=== PATIENT | female | born 1935 | race Caucasian/White ===

== ENCOUNTER 2017-06-14 09:41 | Inpatient (IN) | payer MEDICARE ==
[~2017-06-14] VITALS: Ht 160 cm; Wt 85.3 kg
[2017-06-14] VITALS (8 sets, daily range): BP systolic 135–190; BP diastolic 59–97; PULSE 63–82; RESP 16–20; TEMP 97.4–100.6; O2SAT 94–97
[~2017-06-14 09:41] MED LIST: CEPH500C3 PO; CIPR500T2 PO; FLOR250C PO; GABA300 PO; LORT7.5T3 PO; METR-1 PO; PROM25SU8 PO; TRAM50 PO
[2017-06-14] MEDS ORDERED: VANCOMYCIN INJ 1,200 MG in SODIUM CHLOR 0.9% 250 ML INJ 250 ML IV STA (09:59)
[2017-06-14] MEDS ORDERED: PIPERACIL-TAZO 4.5 GM PREMIX 100 ML IV STA (09:59)
--- NOTE | 2017-06-14 10:20 | PD ---
HPI Chief Complaint: Altered Mental Status Time Seen by Provider: 09:59 Travel History International Travel<30 days: No Contact w/Intl Traveler<30days: No Traveled to known affect area: No History of Present Illness HPI This 82-year-old female is brought by her because of altered mental status. He says that she has been quite confused and agitated since yesterday. She is confused been confined to wheelchair since 2009. She has a long history of back trouble and also had neck surgery which has caused some neurologic problems. 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 She has an indwelling Wang. She had a colostomy done in 2010 because she was not moving her bowels. She had an episode of altered mental status about a month ago and was admitted to [facility]. Her was told that she had infection of the bladder and a wound infection. Her decided describes a mass on the right hip which drained in 2010 and apparently she had a wound there since which drains at times. She is cared for at home by her . Her says she has not been eating. She is also complaining of some pain in her right foot. Her thinks he got caught in a door couple of weeks ago. We did call for old records to [facility]. She was admitted there in April with a similar presentation. 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) Menopausal: Yes Past Surgical History Tonsillectomy: Yes Other Surgery: Yes (BILAT CARPAL TUNNEL SURGERY, HEMMORRHOID SURGERY) Social History Alcohol Use: No Tobacco Use: No Substance Use: No Allergies-Medications (Allergen,Severity, Reaction): Coded Allergies: iodine (Unverified Allergy, Severe, HIVES, 06/14/17) potassium iodide (Unverified Allergy, Severe, HIVES, 06/14/17) povidone-iodine (Unverified Allergy, Severe, HIVES, 06/14/17) sodium iodide (Unverified Allergy, Severe, HIVES, 06/14/17) sodium iodide (Unverified Allergy, Severe, HIVES, 06/14/17) Sulfa (Sulfonamide Antibiotics) (Verified Allergy, Unknown, 06/14/17) Reported Meds & Prescriptions Reported Meds & Active Scripts Active Reported Dorzolamide-Timolol Opth Drops 22.3-6.8 Mg/Ml Soln 1 Drop EACH EYE BID Oxycodone-Acetaminophen 10-325 mg Tab 1 Tab PO Q6H PRN Gabapentin 600 Mg Tab 1,200 Mg PO TID Latanoprost Opth Drops (Latanoprost) 0.005% Drops 1 Drop EACH EYE HS Refrigerate until opened. Alphagan P Opth Drops (Brimonidine Tartrate) 0.1% Soln 0.2 % EACH EYE Q8HR Levofloxacin 500 Mg Tablet 500 Mg PO DAILY Review of Systems General / Constitutional: Positive: Fever Eyes: No: Blurred Vision HENT: No: Headaches Cardiovascular: No: Chest Pain or Discomfort Respiratory: No: Cough, Shortness of Breath Gastrointestinal: No: Vomiting, Diarrhea Genitourinary: Positive: Other (Wang catheter) Musculoskeletal: No: Arthralgias Skin: Positive Other (draining wound right hip, healing decubitus over her sacrum), No Rash Neurologic: Positive: Change in Mentation Psychiatric: No: Substance Abuse Endocrine: No: Heat Intolerance Physical Exam Narrative GENERAL: Well-developed female. She is quite agitated does not follow commands. She does not answer questions appropriately. SKIN: Focused skin assessment warm/dry. HEAD: Atraumatic. Normocephalic. EYES: Pupils equal and round. No scleral icterus. No injection or drainage. ENT: No nasal bleeding or discharge. Mucous membranes dry NECK: Trachea midline. No JVD. CARDIOVASCULAR: Regular rate and rhythm. No murmur appreciated. RESPIRATORY: No accessory muscle use. Clear to auscultation. Breath sounds equal bilaterally. GASTROINTESTINAL: Abdomen soft, non-tender, nondistended. Hepatic and splenic margins not palpable. She has a colostomy. She has a Wang catheter There is an old wound and the area of the right hip appears quite deep and has some yellowish drainage at the base of the wound. MUSCULOSKELETAL: No obvious deformities. No clubbing. No cyanosis. No edema. There is some swelling and tenderness of the left foot which is somewhat diffuse. NEUROLOGICAL: Awake and alert. Agitated. Not answering questions appropriately. she has weakness of both legs PSYCHIATRIC: Not testable, agitated and uncooperative Data Data Last Documented VS Vital Signs Date Time Temp Pulse Resp B/P (MAP) Pulse Ox O2 Delivery O2 Flow Rate FiO2 06/14/17 11:54 82 18 190/97 (128) 97 Room Air 06/14/17 10:22 100.6 Orders Orders Sepsis Workup Initiated (06/14/17 ) Complete Blood Count With Diff (06/14/17 09:59) Comprehensive Metabolic Panel (06/14/17 09:59) Lactic Acid Sepsis Protocol (06/14/17 09:59) Urinalysis - C+S If Indicated (06/14/17 09:59) Blood Culture (06/14/17 09:59) Wound Culture And Gram Stain (06/14/17 09:59) Chest, Single Ap (06/14/17 09:59) Blood Glucose (06/14/17 09:59) Ecg Monitoring (06/14/17 09:59) Iv Access Insert/Monitor (06/14/17 09:59) Oximetry (06/14/17 09:59) Oxygen Administration (06/14/17 09:59) Ct Brain W/O Iv Contrast(Rout) (06/14/17 09:59) Piperacil-Tazo 4.5 Gm Premix (Zosyn 4.5 (06/14/17 09:59) Vancomycin Inj (Vancomycin Inj) (06/14/17 09:59) Ct Abd/Pel W/O Iv Contrast (06/14/17 ) Foot, Limited (2vws) (06/14/17 10:24) Lorazepam Inj (Ativan Inj) (06/14/17 10:45) Sodium Chlor 0.9% 1000 Ml Inj (Ns 1000 M (06/14/17 11:15) Lorazepam Inj (Ativan Inj) (06/14/17 12:00) Urine Culture (06/14/17 11:30) Labs Laboratory Tests Test 06/14/17 10:15 06/14/17 11:30 White Blood Count 8.3 TH/MM3 Red Blood Count 3.71 MIL/MM3 Hemoglobin 10.2 GM/DL Hematocrit 31.9 % Mean Corpuscular Volume 85.9 FL Mean Corpuscular Hemoglobin 27.5 PG Mean Corpuscular Hemoglobin Concent 32.0 % Red Cell Distribution Width 15.9 % Platelet Count 198 TH/MM3 Mean Platelet Volume 7.8 FL Neutrophils (%) (Auto) 78.8 % Lymphocytes (%) (Auto) 13.3 % Monocytes (%) (Auto) 5.3 % Eosinophils (%) (Auto) 1.9 % Basophils (%) (Auto) 0.7 % Neutrophils # (Auto) 6.5 TH/MM3 Lymphocytes # (Auto) 1.1 TH/MM3 Monocytes # (Auto) 0.4 TH/MM3 Eosinophils # (Auto) 0.2 TH/MM3 Basophils # (Auto) 0.1 TH/MM3 CBC Comment DIFF FINAL Differential Comment Blood Urea Nitrogen 13 MG/DL Creatinine 1.20 MG/DL Random Glucose 84 MG/DL Total Protein 8.0 GM/DL Albumin 3.3 GM/DL Calcium Level 8.8 MG/DL Alkaline Phosphatase 90 U/L Aspartate Amino Transf (AST/SGOT) 14 U/L Alanine Aminotransferase (ALT/SGPT) 12 U/L Total Bilirubin 0.7 MG/DL Sodium Level 127 MEQ/L Potassium Level 4.7 MEQ/L Chloride Level 93 MEQ/L Carbon Dioxide Level 25.4 MEQ/L Anion Gap 9 MEQ/L Estimat Glomerular Filtration Rate 43 ML/MIN Lactic Acid Level 1.2 mmol/L Urine Collection Type CATH Urine Color YELLOW Urine Turbidity SLIGHT Urine pH 5.5 Urine Specific [place] 1.021 Urine Protein 100 mg/dL Urine Glucose (UA) NEG mg/dL Urine Ketones NEG mg/dL Urine Occult Blood MOD Urine Nitrite POS Urine Bilirubin NEG Urine Leukocyte Esterase MOD Urine RBC 10-14 /hpf Urine WBC 20-24 /hpf Urine WBC Clumps MOD Urine Bacteria MANY /hpf Microscopic Urinalysis Comment CATH-CULTURE IND Urine Collection Time 11:30 MDM Medical Decision Making Medical Screen Exam Complete: Yes Emergency Medical Condition: Yes Medical Record Reviewed: Yes Differential Diagnosis Differential includes sepsis, intracerebral hemorrhage, UTI, infected wound, delirium, acute encephalopathy Narrative Course Chest x-ray shows borderline heart size and clear lung taylor. X-ray of the left foot shows severe demineralization and degenerative changes but no fracture. CT of the abdomen and pelvis shows findings of pressure sores overlying both issue yet as well as the coccygeal region. There is an area of tissue breakdown with Dr. Olivia in the vicinity of the right initiate. No abscess is seen. CT scan of the head was limited by motion but essentially negative. Hemoglobin is 10.2 with a white count of 8.3. The urine is 13 with creatinine of 1.2. Sodium is 127. Urinalysis shows 20-24 white cells. Patient does have a urinary tract infection. She has been a management problem in the emergency department. She has been crying out and has been quite agitated. Given repeated doses of Ativan with some response. He has been given an initial dose of antibiotics Diagnosis Primary Impression: Acute delirium Additional Impression: Urinary tract infection Admitting Information Admitting Physician Requests: Admit Sean Renee MD Jun 14, 2017 10:20
[2017-06-14 10:26] LABS: AUTOMATED NEUTROPHIL # 6.5 TH/MM3 (1.8-7.7); BASOPHIL # 0.1 TH/MM3 (0-0.2); BASOPHIL % 0.7 % (0.0-2.0); EOSINOPHIL # 0.2 TH/MM3 (0-0.4); EOSINOPHIL % 1.9 % (0.0-4.0); HEMATOCRIT 31.9 % (35.0-46.0); LYMPH % 13.3 % (9.0-44.0); LYMPHOCYTE # 1.1 TH/MM3 (1.0-4.8); MEAN CELL VOLUME 85.9 FL (80.0-100.0); MEAN CORPUSCULAR HEMOGLOBIN 27.5 PG (27.0-34.0); MONO % 5.3 % (0.0-8.0); NEUT % 78.8 % (16.0-70.0); PLATELET COUNT 198 TH/MM3 (150-450); RED BLOOD COUNT 3.71 MIL/MM3 (4.00-5.30); RED CELL DISTRIBUTION WIDTH 15.9 % (11.6-17.2); WHITE BLOOD COUNT 8.3 TH/MM3 (4.0-11.0)
[2017-06-14 10:28] LABS: HEMO FLAGS DIFF FINAL
[2017-06-14 10:41] LABS: CHLORIDE 93 MEQ/L (98-107); POTASSIUM 4.7 MEQ/L (3.5-5.1); SODIUM (NA) 127 MEQ/L (136-145)
[2017-06-14] MEDS ORDERED: GABA600T PO (10:43)
[2017-06-14] MEDS ORDERED: LEVO500T8 PO (10:43)
[2017-06-14] MEDS ORDERED: OXYC1TAB36 PO (10:43)
[2017-06-14] MEDS ORDERED: DORZ2SOL15 EACH EYE (10:43)
[2017-06-14] MEDS ORDERED: ALPH0.1S EACH EYE (10:43)
[2017-06-14] MEDS ORDERED: LATA0.002 EACH EYE (10:43)
[2017-06-14] MEDS ORDERED: LORazepam 2 MG/ML VIAL IV PUSH ONE ×2 (10:45→12:00)
[2017-06-14 10:46] LABS: ANION GAP 9 MEQ/L (5-15); BICARBONATE 25.4 MEQ/L (21.0-32.0); BLOOD UREA NITROGEN 13 MG/DL (7-18)
[2017-06-14 10:49] LABS: ALT (GPT) 12 U/L (10-53); AST (GOT) 14 U/L (15-37)
[2017-06-14 10:50] LABS: GLOMERULAR FILTRATION RATE 43 ML/MIN (>89)
[2017-06-14 10:51] LABS: TOTAL BILIRUBIN ADULT 0.7 MG/DL (0.2-1.0)
[2017-06-14 10:52] LABS: ALKALINE PHOSPHATASE 90 U/L (45-117)
--- NOTE | 2017-06-14 11:00 | RADRPT ---
EXAM DATE/TIME: 06/14/2017 10:36 [facility] COMPARISON: CHEST SINGLE AP, July 23, 2010, 2:36. INDICATIONS : Fever, altered mental status. MEDICAL HISTORY : Hypertension. SURGICAL HISTORY : None. ENCOUNTER: Initial ACUITY: 2 days PAIN SCORE: 0/10 LOCATION: Bilateral chest FINDINGS: A single view of the chest demonstrates the lungs to be symmetrically aerated without evidence of mas s, infiltrate or effusion. Accounting for leftward rotation, heart size is borderline prominent a we ll compensated. No effusions. Degenerative spurring of the dorsal spine. Mechanical fixation of the l ower cervical spine. CONCLUSION: 1. Heart size is borderline prominent but well compensated. 2. No confluent infiltrate or effusion. Oskar Garces MD on June 14, 2017 at 10:56 Board Certified Radiologist. This report was verified electronically.
--- NOTE | 2017-06-14 11:14 | RADRPT ---
EXAM DATE/TIME: 06/14/2017 10:28 [facility] COMPARISON: No previous studies available for comparison. INDICATIONS : Left foot pain, no known injury. MEDICAL HISTORY : None. SURGICAL HISTORY : None. ENCOUNTER: Initial ACUITY: 2 days PAIN SCORE: 2/10 LOCATION: Left foot FINDINGS: Two view examination of the left foot demonstrates extensive, diffuse soft tissue swelling. There is also severe, diffuse osseous demineralization. Severe osteoarthritic changes with near [id number] a rticulation involves the tibiotalar joint with associated prominent spurs. Prominent calcaneal spurs at the plantar aponeurosis and Achilles attachment. Despite the degenerative changes, I do not see an obvious acute fracture injury. CONCLUSION: 1. 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 Prominent calcaneal spurs as well. 2. Diffuse soft tissue swelling. 3. I do not see an obvious acute fracture despite the severe demineralization and regional degenerati ve changes. Oskar Garces MD on June 14, 2017 at 11:09 Board Certified Radiologist. This report was verified electronically.
[2017-06-14] MEDS ORDERED: SODIUM CHLOR 0.9% 1000 ML INJ 1,000 ML IV SCH (11:15)
--- NOTE | 2017-06-14 11:53 | RADRPT ---
EXAM DATE/TIME: 06/14/2017 11:10 [facility] COMPARISON: No previous studies available for comparison. INDICATIONS : Altered mental status. RADIATION DOSE: 59.39 CTDIvol (mGy) ; Patient motion MEDICAL HISTORY : Hypertension. Chronic heel and buttock wounds. Diabetes. SURGICAL HISTORY : Tonsillectomy. Orthopedic surgery. ENCOUNTER: Initial ACUITY: 1 day PAIN SCALE: Non-responsive LOCATION: cranial TECHNIQUE: Multiple contiguous axial images were obtained of the head. Using automated exposure control and adj ustment of the mA and/or kV according to patient size, radiation dose was kept as low as reasonably a chievable to obtain optimal diagnostic quality images. DICOM format image data is available electro nically for review and comparison. FINDINGS: The exam is mildly degraded by patient motion. Grossly, there is no evidence of intracranial mass or hemorrhage. There is nothing to suggest acute infarction. Ventricles are symmetric and normal. The ex tracranial structures are grossly benign area CONCLUSION: Motion degraded exam grossly negative for acute process Nick Wilson MD on June 14, 2017 at 11:48 Board Certified Radiologist. This report was verified electronically.
[2017-06-14 12:11] LABS: BLOOD, URINE MOD (NEG); GLUCOSE,URINE NEG (NEG); KETONE, URINE NEG (NEG); NITRITE,URINE POS (NEG); PH, URINE 5.5 (5.0-8.5)
[2017-06-14 12:13] LABS: METHOD OF COLLECTION CATH; URINE COLOR YELLOW (YELLW/STRAW)
[2017-06-14 12:17] LABS: BACTERIA, URINE MANY /hpf; COMMENT (UR) CATH-CULTURE IND; CULTURE IF INDICATED CATH CULTURE IND
--- NOTE | 2017-06-14 12:17 | RADRPT ---
EXAM DATE/TIME: 06/14/2017 11:17 [facility] COMPARISON: CT ABDOMEN & PELVIS W/O CONTRAST, September 19, 2010, 22:47. INDICATIONS : Right buttock wound. Fever. ORAL CONTRAST: No oral contrast ingested. RADIATION DOSE: 20.71 CTDIvol (mGy) MEDICAL HISTORY : Hypertension. Chronic heel and buttock wounds. Diabetes. SURGICAL HISTORY : Tonsillectomy. Orthopedic surgery. Hemorrhoid surgery. ENCOUNTER: Initial ACUITY: 1 day PAIN SCALE: Non-responsive LOCATION: Right buttock TECHNIQUE: Volumetric scanning of the abdomen and pelvis was performed. Using automated exposure control and ad justment of the mA and/or kV according to patient size, radiation dose was kept as low as reasonably achievable to obtain optimal diagnostic quality images. DICOM format image data is available electro nically for review and comparison. FINDINGS: LOWER LUNGS: Bibasilar atelectatic changes. LIVER: Homogeneous density without lesion. There is no dilation of the biliary tree. No calcified gallston es. SPLEEN: Normal size without lesion. PANCREAS: Within normal limits. KIDNEYS: Normal in size and shape. There is no mass, stone, or hydronephrosis. ADRENAL GLANDS: Within normal limits. VASCULAR: There is no aortic aneurysm. 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 Associated paraostial hernia which o nly contains fat and is quite large measuring 12.7 cm in diameter. ABDOMINAL WALL: Paraostial hernia measuring 12.7 cm in diameter. RETROPERITONEUM: There is no lymphadenopathy. BLADDER: Decompressed with a Mcmillan catheter. REPRODUCTIVE: Patient is status post hysterectomy. INGUINAL: There is no lymphadenopathy or hernia. MUSCULOSKELETAL: Inflammatory stranding over the ischium and coccygeal regions probably represent pressure wounds. Ass ociated tissue breakdown in the region of the right ischium with a linear air track but no obvious ab scess. The marked degenerative hypertrophy of the articulating facets in the lumbar and upper sacral spine. Degenerative osteoarthritic changes in both hips. CONCLUSION: 1. CT findings of pressure sores overlying both ischii as well as the coccygeal region. Associated ti ssue breakdown with linear tract of air in the vicinity of the right ischium. No obvious abscess, how ever. 2. Mid transverse colon colonic ostomy. Associated paraostial hernia measuring 12.7 cm in diameter an d only containing fat 3. Bibasilar atelectatic changes. Oskar Garces MD on June 14, 2017 at 12:05 Board Certified Radiologist. This report was verified electronically.
[2017-06-14] MEDS ORDERED: NALOXONE HCL 0.4 MG/ML AMP IV PUSH PRN (12:45)
[2017-06-14] MEDS ORDERED: ACETAMINOPHEN 325 MG TAB PO PRN (12:45)
[2017-06-14] MEDS ORDERED: SODIUM CHLORIDE 0.9% FLUSH 10 ML FLUSH IV FLUSH PRN (12:45)
[2017-06-14] MEDS: SODIUM CHLOR 0.9% 1000 ML INJ 1,000 ML IV SCH (13:03)
[2017-06-14] MEDS ORDERED: QUEtiapine FUMARATE 25 MG TAB PO ONE (15:00)
[2017-06-14] MEDS ORDERED: ZIPRASIDONE MESYLATE 20 MG VIAL IM ONE (15:15)
--- NOTE | 2017-06-14 15:20 | HHI.HP ---
[facility] Service [place] [facility] Primary Care Physician Florin Whitlock, DO Admission Diagnosis ACUTE DELIRIUM, UTI Diagnoses: Chief Complaint: MENTAL STATUS: Oriented to person, to place and to time. Recent and remote recall intact. Travel History International Travel<30 Days: No Contact w/Intl Traveler <30 Da: No Traveled to Known Affected Are: No History of Present Illness Patient is an 82-year-old female presents to the emergency room with her is her primary public service representative. Over the last 48 hours patient has been increasingly confused. She has not had a fever or chills. She did have antibiotics for presumed UTI given per her primary care doctor but became more confused and her brought her into the hospital. She had not been eating well and had been making strange sounds. Normally she is able to medicate her knees but is usually very quiet. She is very agitated. 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 Back she has an ostomy and a indwelling catheter for diversion. She is also complaining of left ankle pain which has been imaged by the emergency room physician and appears to be degenerative changes without fracture. She is not ambulatory at baseline. Her urinalysis was abnormal suggestive of a urinary tract infection and the patient is hyponatremic. She's been admitted to the hospital for further evaluation of her acute mental status changes. Review of Systems Constitutional: COMPLAINS OF: Change in appetite, DENIES: Diaphoretic episodes , Fatigue, Fever, Weight gain, Weight loss, Chills, Dizziness, Night Sweats Endocrine: DENIES: Abnorml menstrual pattern, Heat/cold intolerance, Polydipsia , Polyuria, Polyphagia Eyes: DENIES: Blurred vision, Diplopia, Eye inflammation, Eye pain, Vision loss , Photosensitivity, Double Vision Ears, nose, mouth, throat: DENIES: Tinnitus, Hearing loss, Vertigo, Nasal discharge, Oral lesions, Throat pain, Hoarseness, Ear Pain, Running Nose, Epistaxis, Sinus Pain, Toothache, Odynophagia Respiratory: DENIES: Apneas, Cough, Snoring, Wheezing, Hemoptysis, Sputum production, Shortness of breath Cardiovascular: DENIES: Chest pain, Palpitations, Syncope, Dyspnea on Exertion , PND, Lower Extremity Edema, Orthopnea, Claudication Gastrointestinal: DENIES: Abdominal pain, Black stools, Bloody stools, Constipation, Diarrhea, Nausea, Vomiting, Difficulty Swallowing, Anorexia Genitourinary: DENIES: Abnormal vaginal bleeding, Dysmenorrhea, Dyspareunia, Sexual dysfunction, Urinary frequency, Urinary incontinence, Urgency, Hematuria , Dysuria, Nocturia, Vaginal discharge Musculoskeletal: COMPLAINS OF: Joint pain, DENIES: Muscle aches, Stiffness, Joint Swelling, Back pain, Neck pain Integumentary: DENIES: Abnormal pigmentation, Pruritus, Rash, Nail changes, Breast masses, Breast skin changes, Nipple discharge Hematologic/lymphatic: DENIES: Bruising, Lymphadenopathy Immunologic/allergic: DENIES: Eczema, Urticaria Neurologic: DENIES: Abnormal gait, Headache, Localized weakness, Paresthesias, Seizures, Speech Problems, Tremor, Poor Balance Psychiatric: COMPLAINS OF: Confusion, DENIES: Anxiety, Mood changes, Depression , Hallucinations, Agitation, Suicidal Ideation, Homicidal Ideation, Delusions Except as stated in HPI: all other systems reviewed are Neg Past Family Social History Past Medical History Glaucoma Chronically bedbound and wheelchair Requires assistance with ADLs Degenerative back disease and spondylolysis Neurogenic bladder Past Surgical History Carpal tunnel Hemorrhoids Tonsils Reported Medications Reviewed in the EMR Allergies: Coded Allergies: iodine (Unverified Allergy, Severe, HIVES, 06/14/17) potassium iodide (Unverified Allergy, Severe, HIVES, 06/14/17) povidone-iodine (Unverified Allergy, Severe, HIVES, 06/14/17) sodium iodide (Unverified Allergy, Severe, HIVES, 06/14/17) sodium iodide (Unverified Allergy, Severe, HIVES, 06/14/17) Sulfa (Sulfonamide Antibiotics) (Verified Allergy, Unknown, 06/14/17) Active Ordered Medications Reviewed in the EMR Family History Does not know her history Social History No tobacco or alcohol dependency, multiple rehabilitation facility admissions and hospital admissions Physical Exam Vital Signs Vital Signs Date Time Temp Pulse Resp B/P (MAP) Pulse Ox O2 Delivery O2 Flow Rate FiO2 06/14/17 14:00 97.9 75 18 143/71 (95) 94 06/14/17 13:14 76 18 145/88 (107) 98 06/14/17 11:54 82 18 190/97 (128) 97 Room Air 06/14/17 10:53 69 18 135/59 (84) 97 Room Air 06/14/17 10:33 97 Room Air 06/14/17 10:33 97 Room Air 06/14/17 10:31 (92) 06/14/17 10:22 100.6 63 16 152/63 (92) 97 Room Air 06/14/17 10:22 Room Air Physical Exam GENERAL: This is a well-nourished, well-developed patient, confused and aggravated, eyes closed SKIN: No rashes, ecchymoses or lesions. Cool and dry. HEAD: Atraumatic. Normocephalic. No temporal or scalp tenderness. EYES: Pupils equal round and reactive. Extraocular motions intact. No scleral icterus. No injection or drainage. ENT: Nose without bleeding, purulent drainage or septal hematoma. Throat without erythema, tonsillar hypertrophy or exudate. Uvula midline. Airway patent. NECK: Trachea midline. No JVD or lymphadenopathy. Supple, nontender, no meningeal signs. CARDIOVASCULAR: Regular rate and rhythm without murmurs, gallops, or rubs. RESPIRATORY: Clear to auscultation. Breath sounds equal bilaterally. No wheezes , rales, or rhonchi. GASTROINTESTINAL: Abdomen soft, non-tender, nondistended. No hepato-splenomegaly , or palpable masses. No guarding. MUSCULOSKELETAL:left ankle swelling but no erythema, and there is FROM, other 3 Extremities without clubbing, cyanosis, or edema. No joint tenderness, effusion , or edema noted. No calf tenderness. Negative Homans sign bilaterally. NEUROLOGICAL: Awake and alert. Cranial nerves II through XII intact. Motor and sensory grossly within normal limits. Five out of 5 muscle strength in all muscle groups. Normal speech. Laboratory Laboratory Tests Test 06/14/17 10:15 06/14/17 11:30 White Blood Count 8.3 Red Blood Count 3.71 Hemoglobin 10.2 Hematocrit 31.9 Mean Corpuscular Volume 85.9 Mean Corpuscular Hemoglobin 27.5 Mean Corpuscular Hemoglobin Concent 32.0 Red Cell Distribution Width 15.9 Platelet Count 198 Mean Platelet Volume 7.8 Neutrophils (%) (Auto) 78.8 Lymphocytes (%) (Auto) 13.3 Monocytes (%) (Auto) 5.3 Eosinophils (%) (Auto) 1.9 Basophils (%) (Auto) 0.7 Neutrophils # (Auto) 6.5 Lymphocytes # (Auto) 1.1 Monocytes # (Auto) 0.4 Eosinophils # (Auto) 0.2 Basophils # (Auto) 0.1 CBC Comment DIFF FINAL Differential Comment Blood Urea Nitrogen 13 Creatinine 1.20 Random Glucose 84 Total Protein 8.0 Albumin 3.3 Calcium Level 8.8 Alkaline Phosphatase 90 Aspartate Amino Transf (AST/SGOT) 14 Alanine Aminotransferase (ALT/SGPT) 12 Total Bilirubin 0.7 Sodium Level 127 Potassium Level 4.7 Chloride Level 93 Carbon Dioxide Level 25.4 Anion Gap 9 Estimat Glomerular Filtration Rate 43 Lactic Acid Level 1.2 Urine Collection Type CATH Urine Color YELLOW Urine Turbidity SLIGHT Urine pH 5.5 Urine Specific [place] 1.021 Urine Protein 100 Urine Glucose (UA) NEG Urine Ketones NEG Urine Occult Blood MOD Urine Nitrite POS Urine Bilirubin NEG Urine Leukocyte Esterase MOD Urine RBC 10-14 Urine WBC 20-24 Urine WBC Clumps MOD Urine Bacteria MANY Microscopic Urinalysis Comment CATH-CULTURE IND Urine Collection Time 11:30 Date/Time Source Procedure Growth Status 06/14/17 10:15 Blood Peripheral Aerobic Blood Culture Pending Received 06/14/17 10:15 Blood Peripheral Anaerobic Blood Culture Pending Received 06/14/17 11:30 Urine Catheterized Urine Urine Culture Pending Received 06/14/17 10:15 Wound Hip Gram Stain Pending Received 06/14/17 10:15 Wound Hip Wound Culture Pending Received Result Diagram: 06/14/17 1015 06/14/17 1015 Imaging Last Impressions Foot X-Ray 06/14/17 1024 Signed Impressions: Service Date/Time: Wednesday, June 14, 2017 10:28 - CONCLUSION: 1. 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 Prominent calcaneal spurs as well. 2. Diffuse soft tissue swelling. 3. I do not see an obvious acute fracture despite the severe demineralization and regional degenerative changes. Oskar Garces MD Head CT 06/14/17 0959 Signed Impressions: Service Date/Time: Wednesday, June 14, 2017 11:10 - CONCLUSION: Motion degraded exam grossly negative for acute process Nick Wilson MD Chest X-Ray 06/14/17 0959 Signed Impressions: Service Date/Time: Wednesday, June 14, 2017 10:36 - CONCLUSION: 1. Heart size is borderline prominent but well compensated. 2. No confluent infiltrate or effusion. Oskar Garces MD Abdomen/Pelvis CT 06/14/17 0000 Signed Impressions: Service Date/Time: Wednesday, June 14, 2017 11:17 - CONCLUSION: 1. CT findings of pressure sores overlying both ischii as well as the coccygeal region. Associated tissue breakdown with linear tract of air in the vicinity of the right ischium. No obvious abscess, however. 2. Mid transverse colon colonic ostomy. 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 Bibasilar atelectatic changes. MD Yary Watkins VTE Risk Assessment Caprini VTE Risk Assessment: Mod/High Risk (score >= 2) Caprini Risk Assessment Model Point Value = 1 Point Value = 2 Point Value = 3 Point Value = 5 Age 41-60 Minor surgery BMI > 25 kg/m2 Swollen legs Varicose veins or History of unexplained or recurrent spontaneous Oral contraceptives or hormone replacement Sepsis (< 1 month) Serious lung disease, including pneumonia (< 1 month) Abnormal pulmonary function Acute myocardial infarction Congestive heart failure (< 1 month) History of inflammatory bowel disease Medical patient at bed rest Age 61-74 Arthroscopic surgery Major open surgery (> 45 min) Laparoscopic surgery (> 45 min) Malignancy Confined to bed (> 72 hours) Immobilizing plaster cast Central venous access Age >= 75 History of VTE Family history of VTE Factor V Leiden Prothrombin [id number] Lupus anticoagulant Anticardiolipin antibodies Elevated serum homocysteine Heparin-induced thrombocytopenia Other congenital or acquired thrombophilia Stroke (< 1 month) Elective arthroplasty Hip, pelvis, or leg fracture Acute spinal cord injury (< 1 month) Prophylaxis Regimen Total Risk Factor Score Risk Level Prophylaxis Regimen 0-1 Low Early ambulation 2 Moderate Order ONE of the following: *Sequential Compression Device (SCD) *Heparin 5000 units SQ BID 3-4 Higher Order ONE of the following medications: *Heparin 5000 units SQ TID *Enoxaparin/Lovenox 40 mg SQ daily (WT < 150 kg, CrCl > 30 mL/min) *Enoxaparin/Lovenox 30 mg SQ daily (WT < 150 kg, CrCl > 10-29 mL/min) *Enoxaparin/Lovenox 30 mg SQ BID (WT < 150 kg, CrCl > 30 mL/min) AND/OR *Sequential Compression Device (SCD) 5 or more Highest Order ONE of the following medications: *Heparin 5000 units SQ TID (Preferred with Epidurals) *Enoxaparin/Lovenox 40 mg SQ daily (WT < 150 kg, CrCl > 30 mL/min) *Enoxaparin/Lovenox 30 mg SQ daily (WT < 150 kg, CrCl > 10-29 mL/min) *Enoxaparin/Lovenox 30 mg SQ BID (WT < 150 kg, CrCl > 30 mL/min) AND *Sequential Compression Device (SCD) Assessment and Plan Problem List: (1) Acute delirium ICD Code: R41.0 - Disorientation, unspecified Status: Acute Plan: Delirium versus encephalopathy secondary to UTI seroquel (2) Urinary tract infection ICD Code: N39.0 - Urinary tract infection, site not specified Status: Acute Plan: IV Zosyn complicated due to Indwelling catheter Failed outpatient Levofloxacin (3) Hyponatremia ICD Code: E87.1 - Hypo-osmolality and hyponatremia Plan: likely dehydrated osmolarities pending IV NS (4) Sacral wound ICD Code: S31.000A - Unspecified open wound of lower back and pelvis without penetration into retroperitoneum, initial encounter Plan: continue wound care ostomy placed to protect wound (5) Glaucoma ICD Code: H40.9 - Unspecified glaucoma Plan: continue home eye drops (6) Left ankle pain ICD Code: M25.572 - Pain in left ankle and joints of left foot Plan: no fracture on xray continue pain meds Assessment and Plan heparin Code Status full code Discussed Condition With patient, RN, ER MD, Spouse, CM Physician Certification 2 Midnight Certification Type: Admission for Inpatient Services Order for Inpatient Services The services are ordered in accordance with Medicare regulations or non- Medicare payer requirements, as applicable. In the case of services not specified as inpatient-only, they are appropriately provided as inpatient services in accordance with the 2-midnight benchmark. Estimated LOS (days): 3 3 days is the estimated time the patient will need to remain in the hospital, assuming treatment plan goals are met and no additional complications. Post-Hospital Plan: Not yet determined Problem Qualifiers (1) Urinary tract infection: Susan Winter MD Jun 14, 2017 15:20
[2017-06-14] MEDS: HEPARIN SODIUM - SQ 10,000 UNITS/ML VIAL SQ SCH ×2 (16:58→21:06)
[2017-06-14] MEDS: PIPERACIL-TAZO 4.5 GM PREMIX 100 ML IV SCH (18:35)
[2017-06-14] MEDS: GABAPENTIN 300 MG CAP PO SCH (20:59)
[2017-06-14] MEDS: DORZOLAMIDE/TIMOLOL OPTH SOLN 10 ML BTL EACH EYE SCH (21:00)
[2017-06-14] MEDS: LATANOPROST 0.005% OPHT SOLN 2.5 ML BTL EACH EYE SCH (21:02)
[2017-06-14] MEDS: SODIUM CHLORIDE 0.9% FLUSH 10 ML FLUSH IV FLUSH SCH (21:06)
[2017-06-14] MEDS: BRIMONIDINE TARTRATE 0.2% OPHT SOLN 5 ML BTL EACH EYE SCH (21:08)
[2017-06-15] VITALS: BP 131/58; PULSE 57; RESP 18; TEMP 96.8; O2SAT 98
[2017-06-15] MEDS: PIPERACIL-TAZO 4.5 GM PREMIX 100 ML IV SCH ×3 (01:27→17:18)
[2017-06-15] MEDS: SODIUM CHLOR 0.9% 1000 ML INJ 1,000 ML IV SCH ×3 (01:27→18:37)
[2017-06-15] MEDS: HEPARIN SODIUM - SQ 10,000 UNITS/ML VIAL SQ SCH ×3 (05:23→20:45)
[2017-06-15] MEDS: BRIMONIDINE TARTRATE 0.2% OPHT SOLN 5 ML BTL EACH EYE SCH ×3 (05:23→20:48)
[2017-06-15 07:50] VITALS: BP 192/81; PULSE 65; RESP 20; TEMP 96.8; O2SAT 100
[2017-06-15] MEDS: DORZOLAMIDE/TIMOLOL OPTH SOLN 10 ML BTL EACH EYE SCH ×2 (09:00→20:47)
[2017-06-15] MEDS: GABAPENTIN 300 MG CAP PO SCH ×2 (09:00→20:59)
[2017-06-15] MEDS: SODIUM CHLORIDE 0.9% FLUSH 10 ML FLUSH IV FLUSH SCH ×2 (09:00→20:59)
[2017-06-15 09:11] LABS: AUTOMATED NEUTROPHIL # 4.5 TH/MM3 (1.8-7.7); BASOPHIL % 0.5 % (0.0-2.0); EOSINOPHIL # 0.2 TH/MM3 (0-0.4); EOSINOPHIL % 3.5 % (0.0-4.0); HEMATOCRIT 31.1 % (35.0-46.0); HEMO FLAGS DIFF FINAL; LYMPH % 7.2 % (9.0-44.0); LYMPHOCYTE # 0.4 TH/MM3 (1.0-4.8); MEAN CELL VOLUME 86.4 FL (80.0-100.0); MEAN CORPUSCULAR HEMOGLOBIN 28.2 PG (27.0-34.0); MEAN CORPUSCULAR HGB CONC 32.6 % (32.0-36.0); MONO % 4.7 % (0.0-8.0); NEUT % 84.1 % (16.0-70.0); PLATELET COUNT 178 TH/MM3 (150-450); RED CELL DISTRIBUTION WIDTH 15.9 % (11.6-17.2); WHITE BLOOD COUNT 5.3 TH/MM3 (4.0-11.0)
[2017-06-15 09:23] LABS: BICARBONATE 25.7 MEQ/L (21.0-32.0)
--- NOTE | 2017-06-15 10:52 | HHI.PR ---
Subjective Remarks Patient seen and evaluated in follow-up for acute delirium likely secondary to urinary tract infection. Tolerating current antibiotics well. Less delirious. Calm. Care plan discussed with nursing team and spouse at bedside Objective Vitals Vital Signs Date Time Temp Pulse Resp B/P (MAP) Pulse Ox O2 Delivery O2 Flow Rate FiO2 06/15/17 07:50 96.8 65 20 192/81 (118) 100 06/15/17 00:00 96.8 57 18 131/58 (82) 98 06/14/17 20:00 97.6 76 20 178/87 (117) 97 06/14/17 16:00 97.4 68 18 138/74 (95) 95 06/14/17 14:00 97.9 75 18 143/71 (95) 94 06/14/17 13:14 76 18 145/88 (107) 98 06/14/17 11:54 82 18 190/97 (128) 97 Room Air 06/14/17 10:53 69 18 135/59 (84) 97 Room Air I/O 06/14/17 06/14/17 06/14/17 06/15/17 06/15/17 06/15/17 07:00 15:00 23:00 07:00 15:00 23:00 Intake Total 100 ml 577 ml 1200 ml Output Total 600 ml 1500 ml Balance 100 ml -23 ml -300 ml Intake Oral 0 ml IV Total 100 ml 577 ml 1200 ml Output Urine Total 600 ml 1500 ml # Voids 0 # Bowel Movements 0 1 Result Diagram: 06/15/17 0850 06/15/17 0850 Objective Remarks GENERAL: This is a well-nourished, well-developed patient, resting, eyes open today CARDIOVASCULAR: Regular rate and rhythm without murmurs, gallops, or rubs. RESPIRATORY: Clear to auscultation. Breath sounds equal bilaterally. No wheezes , rales, or rhonchi. GASTROINTESTINAL: Mcmillan and Ostomy bag in place, otherwise Abdomen soft, non- tender, nondistended. Normal active bowel sounds MUSCULOSKELETAL: Extremities without clubbing, cyanosis, or edema. NEURO: Calm, not conversant A/P Problem List: (1) Acute delirium ICD Code: R41.0 - Disorientation, unspecified Status: Acute Plan: Improved Delirium versus encephalopathy secondary to UTI seroquel (2) Urinary tract infection ICD Code: N39.0 - Urinary tract infection, site not specified Status: Acute Plan: IV Zosyn complicated due to Indwelling catheter Failed outpatient Levofloxacin Await cultures (3) Hyponatremia ICD Code: E87.1 - Hypo-osmolality and hyponatremia Plan: Improved with hydration (4) Sacral wound ICD Code: S31.000A - Unspecified open wound of lower back and pelvis without penetration into retroperitoneum, initial encounter Plan: continue wound care ostomy placed to protect wound Discharge Planning Likely will need [facility] facility at discharge Patient requires max assistance with almost total care Continue heparin Problem Qualifiers (1) Urinary tract infection: Susan Winter MD Jun 15, 2017 10:52
[2017-06-15 11:50] VITALS: BP 184/94; PULSE 85; RESP 20; TEMP 98.1; O2SAT 94
[2017-06-15] MEDS ORDERED: PILL SPLITTER OTHER PRN (13:00)
[2017-06-15] MEDS: LISINOPRIL 20 MG TAB PO SCH (14:11)
[2017-06-15] MEDS: amLODIPine BESYLATE 5 MG TAB PO SCH (14:11)
[2017-06-15 15:50] VITALS: BP 141/67; PULSE 89; RESP 20; TEMP 96.8; O2SAT 97
[2017-06-15] MEDS: oxyCODONE/ACETAMINOPHEN 10 MG/325 MG TAB PO PRN (17:12)
[2017-06-15] MEDS ORDERED: QUEtiapine FUMARATE 25 MG TAB PO ONE (18:30)
--- NOTE | 2017-06-15 19:29 | PD.WCN.NOT ---
Wound Consult Description: Received consult from Doctor Winter for wound management of sacral area. Communicated with: FLOR Centeno 3rd floor [facility], FLOR Paige RN [facility] 3rd floor and call placed to Doctor Winter Recommendation: 1.Please cleanse wound to R ischium with normal saline or wound cleanser and pat dry. Apply Maxorb extra AG packed into wound bed and cover with adhesive foam dressing. Change dressing every 2 days or PRN if saturated or dislodged. 2.Please obtain WAVE bed from [place]. 3.Please float heels bilaterally to offload pressure from heels 4.Turn patient every 2 hours and PRN for comfort and offloading of pressure from ronald prominences 5.Patient may need plastics consult due to tunneling in wound and MRSA positive wound culture. Additional Information: Patient seen on 3rd floor [facility] for wound management of sacral wounds around 1850. Patient is confused and slightly agitated. Patient wants advertising copy writer to look at wound, but is not aware of hospital setting or time.Patient turned with the assistance of advertising copy writer and Nicki RAY [facility] to R side for wound assessment. Scar tissue is assessed over sacral, and L ischial area that is slightly macerated and denuded over sacrum. R ischial area is noted with open wound measuring 1.4cm x 2.1 cm x 2cm . ~2.4cm of tunneling was assessed at 9 o' clock. Wound bed presents with ~30% pink tissue, ~60% red tissue and ~10% bone at the base. Bone is also palpated in wound bed but not visible. 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 Wound margins present with epibole from 11 to 3 o'clock. Wound monta[place] s a mild musty , sweet odor. Minimal active sero-sanguinous drainage is also noted. Due to tunneling, MRSA in wound, and Wound location geography do not recommend wound VAC at this time. May need plastics evaluation for tunneling and of MRSA positive wound culture with visible bone in a stage 4 pressure injury. Beulah Hill [facility] Jun 15, 2017 19:29
[2017-06-15 20:00] VITALS: BP 120/60; PULSE 95; RESP 20; TEMP 99.1; O2SAT 97
[2017-06-15] MEDS: LATANOPROST 0.005% OPHT SOLN 2.5 ML BTL EACH EYE SCH (20:46)
[2017-06-15] MEDS: HALOPERIDOL LACTATE 5 MG/ML AMP IM PRN (20:49)
[2017-06-16] VITALS: BP 139/58; PULSE 79; RESP 20; TEMP 99.1; O2SAT 95
[2017-06-16] MEDS: SODIUM CHLOR 0.9% 1000 ML INJ 1,000 ML IV SCH (01:55)
[2017-06-16] MEDS: PIPERACIL-TAZO 4.5 GM PREMIX 100 ML IV SCH ×2 (02:31→07:41)
[2017-06-16] MEDS: BRIMONIDINE TARTRATE 0.2% OPHT SOLN 5 ML BTL EACH EYE SCH ×3 (04:57→19:41)
[2017-06-16] MEDS: HEPARIN SODIUM - SQ 10,000 UNITS/ML VIAL SQ SCH ×3 (04:59→19:41)
[2017-06-16] MEDS: SODIUM CHLORIDE 0.9% FLUSH 10 ML FLUSH IV FLUSH SCH ×2 (07:33→19:42)
[2017-06-16] MEDS: amLODIPine BESYLATE 5 MG TAB PO SCH (07:40)
[2017-06-16] MEDS: HALOPERIDOL LACTATE 5 MG/ML AMP IM PRN (07:41)
[2017-06-16] MEDS: LISINOPRIL 20 MG TAB PO SCH (07:41)
[2017-06-16] MEDS: DORZOLAMIDE/TIMOLOL OPTH SOLN 10 ML BTL EACH EYE SCH ×2 (07:41→20:04)
[2017-06-16] MEDS: GABAPENTIN 300 MG CAP PO SCH ×2 (07:41→19:42)
[2017-06-16 08:00] VITALS: BP 140/85; PULSE 75; RESP 16; TEMP 96.3; O2SAT 97
[2017-06-16] MEDS: AMOXICILLIN/CLAVULANATE K 500 MG TAB PO SCH ×2 (10:00→19:42)
--- NOTE | 2017-06-16 10:38 | HHI.PR ---
Subjective Remarks patient seen in room in follow-up for delirium with urinary tract infection. I did discuss at length with spouse current care plan and change of antibiotics to oral. Awaiting follow-up for possible rehabilitation placement. Also discussed MRSA per findings and wound care recommendations with the spouse. Objective Vitals Vital Signs Date Time Temp Pulse Resp B/P (MAP) Pulse Ox O2 Delivery O2 Flow Rate FiO2 06/16/17 08:00 96.3 75 16 140/85 (103) 97 06/16/17 00:00 99.1 79 20 139/58 (85) 95 06/15/17 20:00 99.1 95 20 120/60 (80) 97 06/15/17 18:14 18 06/15/17 15:50 96.8 89 20 141/67 (91) 97 06/15/17 11:50 98.1 85 20 184/94 (124) 94 I/O 06/15/17 06/15/17 06/15/17 06/16/17 06/16/17 06/16/17 07:00 15:00 23:00 07:00 15:00 23:00 Intake Total 1200 ml 240 ml 1920 ml 100 ml Output Total 1500 ml 1950 ml 600 ml Balance -300 ml -1710 ml 1320 ml 100 ml Intake Oral 240 ml 720 ml IV Total 1200 ml 1200 ml 100 ml Output Urine Total 1500 ml 1400 ml 600 ml Stool Total 550 ml # Bowel Movements 1 Result Diagram: 06/15/17 0850 06/15/17 0850 Objective Remarks GENERAL: This is a well-nourished, well-developed patient, resting, eyes open today CARDIOVASCULAR: Regular rate and rhythm without murmurs, gallops, or rubs. RESPIRATORY: Clear to auscultation. Breath sounds equal bilaterally. No wheezes , rales, or rhonchi. GASTROINTESTINAL: Mcmillan and Ostomy bag in place, otherwise Abdomen soft, non- tender, nondistended. Normal active bowel sounds MUSCULOSKELETAL: Extremities without clubbing, cyanosis, or edema. NEURO: Calm, not conversant A/P Problem List: (1) Acute delirium ICD Code: R41.0 - Disorientation, unspecified Status: Acute Plan: Improved Delirium versus encephalopathy secondary to UTI seroquel twice a day (2) Urinary tract infection ICD Code: N39.0 - Urinary tract infection, site not specified Status: Acute Plan: By mouth Augmentin for Escherichia coli UTI complicated due to Indwelling catheter (3) Hyponatremia ICD Code: E87.1 - Hypo-osmolality and hyponatremia Plan: Resolved (4) Sacral wound ICD Code: S31.000A - Unspecified open wound of lower back and pelvis without penetration into retroperitoneum, initial encounter Plan: continue wound care ostomy placed to protect wound Wound care NOTES REVIEWED, DISCUSSED WITH PATIENT'S SPOUSE. HE WOULD PREFER TO CONTINUE FOLLOW-UP WITH HIS OUTPATIENT WOUND CARE PROVIDER MRSA positivity noted, patient on isolation here. Patient's spouse reports it has been MRSA positive and treated. He was told that she would always test positive and further antibiotics were not indicated. He has declined further evaluation for his spouse Discharge Planning in am may need [facility] facility at discharge Patient requires max assistance with almost total care Continue heparin Problem Qualifiers (1) Urinary tract infection: Susan Winter MD Jun 16, 2017 10:38
[2017-06-16] MEDS: QUEtiapine FUMARATE 25 MG TAB PO SCH ×2 (12:45→19:42)
[2017-06-16] MEDS ORDERED: Amoxicil-Clavulanate PO (14:29)
[2017-06-16] MEDS ORDERED: LISI-515 PO (14:29)
[2017-06-16] MEDS ORDERED: AMLO5 PO (14:29)
[2017-06-16] MEDS ORDERED: OXYC1TAB36 PO (14:29)
--- NOTE | 2017-06-16 14:29 | HHI.DCPOC ---
Discharge Care Plan Diagnosis: (1) Acute delirium (2) Urinary tract infection Goals to Promote Your Health * To prevent worsening of your condition and complications * To maintain your health at the optimal level Directions to Meet Your Goals Take your medications as prescribed Follow your dietary instruction Follow activity as directed Keep your appointments as scheduled Take your immunizations and boosters as scheduled If your symptoms worsen call your PCP, if no PCP go to Urgent Care Center or Emergency Room Smoking is Dangerous to Your Health. Avoid second hand smoke Call the 24-hour hour crisis hotline for domestic abuse at Susan Winter MD Jun 16, 2017 14:29
[2017-06-16] MEDS ORDERED: SERO25TA PO (14:30)
[2017-06-16 16:00] VITALS: BP 169/74; PULSE 97; RESP 12; TEMP 99.5; O2SAT 94
[2017-06-16 20:00] VITALS: BP 165/86; PULSE 85; RESP 20; TEMP 97.6; O2SAT 94
[2017-06-16] MEDS: oxyCODONE/ACETAMINOPHEN 10 MG/325 MG TAB PO PRN (20:07)
[2017-06-16] MEDS: LATANOPROST 0.005% OPHT SOLN 2.5 ML BTL EACH EYE SCH (20:10)
[2017-06-17] VITALS: BP 167/74; PULSE 87; RESP 18; TEMP 99.7; O2SAT 96
[2017-06-17] MEDS: HEPARIN SODIUM - SQ 10,000 UNITS/ML VIAL SQ SCH (06:24)
[2017-06-17] MEDS: BRIMONIDINE TARTRATE 0.2% OPHT SOLN 5 ML BTL EACH EYE SCH (06:24)
[2017-06-17 08:00] VITALS: BP 173/87; PULSE 79; RESP 20; TEMP 98; O2SAT 96
[2017-06-17] MEDS: amLODIPine BESYLATE 5 MG TAB PO SCH (08:22)
[2017-06-17] MEDS: GABAPENTIN 300 MG CAP PO SCH (08:22)
[2017-06-17] MEDS: DORZOLAMIDE/TIMOLOL OPTH SOLN 10 ML BTL EACH EYE SCH (08:22)
[2017-06-17] MEDS: LISINOPRIL 20 MG TAB PO SCH (08:23)
[2017-06-17] MEDS: AMOXICILLIN/CLAVULANATE K 500 MG TAB PO SCH (08:23)
[2017-06-17] MEDS: QUEtiapine FUMARATE 25 MG TAB PO SCH (08:23)
[2017-06-17] MEDS: SODIUM CHLORIDE 0.9% FLUSH 10 ML FLUSH IV FLUSH SCH (08:24)
--- NOTE | 2017-06-17 11:48 | HHI.DS ---
roselyn Discharge Summary Admission Date Jun 14, 2017 at 15:17 Discharge Date: Jun 17, 2017 Admitting Diagnosis ACUTE DELIRIUM, UTI (1) Acute delirium ICD Code: R41.0 - Disorientation, unspecified Status: Acute (2) Urinary tract infection ICD Code: N39.0 - Urinary tract infection, site not specified Status: Acute (3) Hyponatremia ICD Code: E87.1 - Hypo-osmolality and hyponatremia (4) Sacral wound ICD Code: S31.000A - Unspecified open wound of lower back and pelvis without penetration into retroperitoneum, initial encounter Procedures none Brief History - From Admission Patient is an 82-year-old female presents to the emergency room with 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 Over the last 48 hours patient has been increasingly confused. She has not had a fever or chills. She did have antibiotics for presumed UTI given per her primary care doctor but became more confused and her brought her into the hospital. She had not been eating well and had been making strange sounds. Normally she is able to medicate her knees but is usually very quiet. She is very agitated. 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 Back she has an ostomy and a indwelling catheter for diversion. She is also complaining of left ankle pain which has been imaged by the emergency room physician and appears to be degenerative changes without fracture. She is not ambulatory at baseline. Her urinalysis was abnormal suggestive of a urinary tract infection and the patient is hyponatremic. She's been admitted to the hospital for further evaluation of her acute mental status changes. CBC/BMP: 06/15/17 0850 06/15/17 0850 Significant Findings Laboratory Tests Test 06/15/17 08:50 06/15/17 23:40 Red Blood Count 3.60 MIL/MM3 (4.00-5.30) Hemoglobin 10.1 GM/DL (11.6-15.3) Hematocrit 31.1 % (35.0-46.0) Neutrophils (%) (Auto) 84.1 % (16.0-70.0) Lymphocytes (%) (Auto) 7.2 % (9.0-44.0) Lymphocytes # (Auto) 0.4 TH/MM3 (1.0-4.8) Estimat Glomerular Filtration Rate 54 ML/MIN (>89) Imaging Last Impressions Foot X-Ray 06/14/17 1024 Signed Impressions: Service Date/Time: Wednesday, June 14, 2017 10:28 - CONCLUSION: 1. 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 Prominent calcaneal spurs as well. 2. Diffuse soft tissue swelling. 3. I do not see an obvious acute fracture despite the severe demineralization and regional degenerative changes. Oskar Garces MD Head CT 06/14/17 0959 Signed Impressions: Service Date/Time: Wednesday, June 14, 2017 11:10 - CONCLUSION: Motion degraded exam grossly negative for acute process Nick Wilson MD Chest X-Ray 06/14/17 0959 Signed Impressions: Service Date/Time: Wednesday, June 14, 2017 10:36 - CONCLUSION: 1. Heart size is borderline prominent but well compensated. 2. No confluent infiltrate or effusion. Oskar Garces MD Abdomen/Pelvis CT 06/14/17 0000 Signed Impressions: Service Date/Time: Wednesday, June 14, 2017 11:17 - CONCLUSION: 1. CT findings of pressure sores overlying both ischii as well as the coccygeal region. Associated tissue breakdown with linear tract of air in the vicinity of the right ischium. No obvious abscess, however. 2. Mid transverse colon colonic ostomy. 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 Bibasilar atelectatic changes. Oskar Garces MD PE at Discharge GENERAL: This is a well-nourished, well-developed patient, resting, awake and conversant CARDIOVASCULAR: Regular rate and rhythm without murmurs, gallops, or rubs. RESPIRATORY: Clear to auscultation. Breath sounds equal bilaterally. No wheezes , rales, or rhonchi. GASTROINTESTINAL: Mcmillan and Ostomy bag in place, otherwise Abdomen soft, non- tender, nondistended. Normal active bowel sounds MUSCULOSKELETAL: Extremities without clubbing, cyanosis, or edema. NEURO: Alert and oriented 3, moves all 4 extremities Pt update on day of discharge Patient seen today. Much more alert and orientated choking. Complaining of left arm pain which is chronic per patient. Usually improved with Tylenol and or cortisone injections as an outpatient. Discharge plans discussed with patient and spouse and they're in agreement Hospital Course This patient's 82-year-old female who came in with increased delirium likely due to urinary tract infection. Urine cultures did grow out Escherichia coli and this was treated with appropriate antibiotics. Patient also has chronic wound of the sacrum area she is an outpatient follow-up for this. 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 Currently there is no active drainage from the wound and it does not appear to be infected. She has had an ostomy and a urinary Mcmillan placed to protect the wound) bowels outpatient management is working quite well. Patient' s mental status improved greatly with treatment of her urinary tract infection with antibiotics Pt Condition on Discharge: Good Discharge Disposition: Discharge to SNF Discharge Time: > 30 minutes Discharge Instructions DIET: Follow Instructions for: As Tolerated, No Restrictions Activities you can perform: Regular-No Restrictions Follow up Referrals: Wound Care Clinic - 1 Week New Medications: Amlodipine (Norvasc) 5 Mg Tab 2.5 MG PO DAILY for Blood Pressure Management, #31 TAB Lisinopril (Lisinopril) 20 Mg Tab 20 MG PO DAILY for Blood Pressure Management, #21 TAB Quetiapine (Seroquel) 25 Mg Tab 25 MG PO BID for nerves, #60 TAB [Amoxicil-Clavulanate] () 500 MG TAB 500 MG PO Q12HR for Infection, #14 Continued Medications: Brimonidine Opth Drops (Alphagan P Opth Drops) 0.1% Soln 0.2 % EACH EYE Q8HR for Intraocular pressure, #1 BOTTLE 0 Refills Dorzolamide-Timolol Opth Drops (Dorzolamide-Timolol Opth Drops) 22.3-6.8 Mg/Ml Soln 1 DROP EACH EYE BID for Glaucoma, BOTTLE 0 Refills Gabapentin (Gabapentin) 600 Mg Tab 1200 MG PO TID, #90 TAB 0 Refills Latanoprost Opth Drops (Latanoprost Opth Drops) 0.005% Drops 1 DROP EACH EYE HS for Glaucoma, #2.5 ML 0 Refills Refrigerate until opened. Oxycodone-Acetaminophen (Oxycodone-Acetaminophen) 10-325 mg Tab 1 TAB PO Q6H PRN for PAIN, #30 TAB 0 Refills (This prescription has been renewed ) Discontinued Medications: Levofloxacin (Levofloxacin) 500 Mg Tablet 500 MG PO DAILY for Infection, TAB 0 Refills Susan Winter MD Jun 17, 2017 11:47
[2017-06-17 12:00] VITALS: BP 170/68; PULSE 68; RESP 20; TEMP 98.3; O2SAT 98
== END 2017-06-17 13:50 | DRG 698 ==
LOC: PHED 09:41 → PHEDA 12:39 → PH3A 13:48 → OBSVTOIN 15:17
PROVIDERS: ADMIT Hospitalist; ATTEND Hospitalist
DX: T83.511A Infection and inflammatory reaction due to indwelling urethral catheter, initial encounter (principal); L89.154 Pressure ulcer of sacral region, stage 4; G82.20 Paraplegia, unspecified; F05 Delirium due to known physiological condition; L89.214 Pressure ulcer of right hip, stage 4; E87.1 Hypo-osmolality and hyponatremia; N39.0 Urinary tract infection, site not specified; N31.9 Neuromuscular dysfunction of bladder, unspecified; M43.00 Spondylolysis, site unspecified; H40.9 Unspecified glaucoma; M25.572 Pain in left ankle and joints of left foot; B96.20 Unspecified Escherichia coli [E. coli] as the cause of diseases classified elsewhere; M19.90 Unspecified osteoarthritis, unspecified site; I10 Essential (primary) hypertension; Y84.6 Urinary catheterization as the cause of abnormal reaction of the patient, or of later complication, without mention of misadventure at the time of the procedure; Z22.322 Carrier or suspected carrier of Methicillin resistant Staphylococcus aureus; Z74.01 Bed confinement status; Z88.2 Allergy status to sulfonamides; Z93.3 Colostomy status; Z99.3 Dependence on wheelchair
CPT/HCPCS: 70450; 71010; 73620; 74176; 80048; 80053; 81001; 83605; 83930; 83935; 84300; 85025; 86403; 87040; 87070; 87077; 87086; 87147; 87186; 87205; J1630; J1644; J2060; J2543; J3370; J3486; J7030; J7050

== ENCOUNTER 2017-12-01 18:44 | Inpatient (IN) | END 2017-12-07 18:28 | disposition hospice, inpatient (51) | DRG 70 | DX: G93.41 Metabolic encephalopathy (principal); G82.50 Quadriplegia, unspecified; N17.9 Acute kidney failure, unspecified; L89.152 Pressure ulcer of sacral region, stage 2; E87.1 Hypo-osmolality and hyponatremia; L97.119 Non-pressure chronic ulcer of right thigh with unspecified severity; J98.11 Atelectasis; N31.9 Neuromuscular dysfunction of bladder, unspecified; I10 Essential (primary) hypertension; H40.9 Unspecified glaucoma; M51.36 Other intervertebral disc degeneration, lumbar region; G47.00 Insomnia, unspecified; G31.83 Neurocognitive disorder with Lewy bodies; M48.061 Spinal stenosis, lumbar region without neurogenic claudication; M19.90 Unspecified osteoarthritis, unspecified site; F02.80 Dementia in other diseases classified elsewhere, unspecified severity, without behavioral disturbance, psychotic disturbance, mood disturbance, and anxiety; F40.240 Claustrophobia; Z51.5 Encounter for palliative care; Z74.01 Bed confinement status; Z88.2 Allergy status to sulfonamides; Z93.3 Colostomy status ==